=== PATIENT | female | born 2005 | race Caucasian/White ===

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

== ENCOUNTER 2024-02-11 19:16 | Emergency (ER) | payer OTHER ==
[~2024-02-11] VITALS: Ht 170.2 cm; Wt 73.0 kg
[~2024-02-11 19:16] MED LIST changes: +CEPHALEXIN500 M1 PO; +HYDROCODON-ACE1 EA10 PO; +LUNESTA1 MG PO; +ONDANSETRON HCL4 MG PO
[2024-02-11] MEDS ORDERED: TRAZODONE HCL50 MG PO (21:03)
[2024-02-11] MEDS ORDERED: PREDNISONE20 MG PO (21:03)
[2024-02-11] MEDS ORDERED: KETOROLAC TROMETHAMINE 30 MG/ML VIAL IM ONE (21:15)
[2024-02-12] MEDS ORDERED: MELOXICAM7.5 MG PO (00:29)
[2024-02-12] MEDS ORDERED: CYCLOBENZAPRINE10 MG PO (00:29)
[2024-02-12 00:41] VITALS: BP 126/67
== END 2024-02-12 00:35 | disposition home or self-care (01) ==
LOC: ED 19:16
DX: S16.1XXA Strain of muscle, fascia and tendon at neck level, initial encounter (principal); J45.909 Unspecified asthma, uncomplicated; F41.9 Anxiety disorder, unspecified; V89.2XXA Person injured in unspecified motor-vehicle accident, traffic, initial encounter; Z79.899 Other long term (current) drug therapy; Z79.3 Long term (current) use of hormonal contraceptives
CPT/HCPCS: 36415; 72070; 72125; 84703; 96372; 99284-25; J1885